=== PATIENT | male | born 1980 | race Caucasian/White ===

== ENCOUNTER 2021-05-18 16:45 | Outpatient (RCR) | payer OTHER, SELFPAY ==
[2021-02-18 09:05] VITALS: BP_SYST 160
--- NOTE | 2021-02-18 10:12 | PTOPEVAL ---
Thank you for referring Flo Farmer to [facility].? The patient is scheduled to be seen for therapy? 1-2 x/week for 5 weeks. Please review, sign, date and return this plan of care YULI. I agree with and certify that the following plan of care is medically necessary. 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 Onset 07/08 Additional Evaluation Detail He initially fractured his humerous with dislocation s/p ORIF 07/08, the shoulder replacement 06/07. He has been receiving therapy since surgery. 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 No Family strengthening. He reports limitations with reaching in all directions, sleeping on left side and lifting objects. He does basic yard work and walking for exercise. No regular fitness program. He is looking for a referral for an orthopedic MD at [facility]. Previous Treatments Previous Treatments For This Problem since 06/07 Pain Assessment Left Shoulder(s) Reported Pain Level 2 Pain Description Aching Pain Frequency Chronic,Continuous Lowest Pain Intensity 2 Greatest Pain Intensity 2 Upper Extremity Range of Motion Scapular/ Shoulder Range of Motion Right Shoulder Flexion - Active 154 Shoulder Extension - Active 38 Shoulder Abduction - Active 148 Shoulder Medial Rotation - Active T12:Reach Behind the Back Shoulder Lateral Rotation - Active C5:Reach Behind the Head Left Scapular: Retraction Hypomobile Scapular: Protraction Hypomobile Scapular Downward Rotation Hypomobile Scapular Upward Rotation Hypomobile Shoulder Flexion - Active 105 Shoulder Flexion - Passive 150 Shoulder Extension - Active 28 Shoulder Abduction - Active 78 Shoulder Abduction - Passive 160 Shoulder Medial Rotation - Active 35 Shoulder Medial Rotation - Passive 50 Shoulder Medial Rotation - Active iliac crestReach Behind the Back Shoulder Lateral Rotation - Active 4
--- NOTE | 2021-03-03 11:51 | PCPTNOTE ---
Patient called & cancelled scheduled appointment this date due to having to work.
--- NOTE | 2021-03-08 17:00 | PCPTNOTE ---
Patient called & cancelled scheduled appointment this date due to being out of town.
--- NOTE | 2021-03-10 16:59 | PCPTNOTE ---
Patient did not show up for scheduled appointment this date; called patient and left voicemail.
[2021-04-01 07:28] VITALS: BP_SYST 165
--- NOTE | 2021-04-05 07:25 | PCPTNOTE ---
Patient did not show up for scheduled appointment this date. Called and left message reminding him of his next visit.
--- NOTE | 2021-04-08 07:13 | PCPTNOTE ---
Patient did not show up for scheduled appointment this date. Called and left message on voicemail. Reminded him of his next visit and the cancellation policy. If he does not attend his next visit will DC him from therapy.
--- NOTE | 2021-04-13 16:27 | PCPTNOTE ---
Patient called & cancelled scheduled appointment this date due to not feeling well.
--- NOTE | 2021-04-29 15:56 | PCPTNOTE ---
Patient called & cancelled scheduled appointment this date leaving a voicemail with no reason.
[2021-05-05 07:31] VITALS: BP_SYST 170
--- NOTE | 2021-05-05 09:31 | PTOPEVAL ---
Thank you for referring Flo Farmer to [facility].? The patient is scheduled to be seen for therapy? 2 x/week for 4 weeks. Please review, sign, date and return this plan of care YULI. I agree with and certify that the following plan of care is medically necessary. Referring Physician Date Attending Provider: Brittnee Howard MD Diagnosis left shoulder pain. Onset 07/08 Additional Evaluation Detail He initially fractured his humerus with dislocation s/p ORIF 07/08, the shoulder replacement 06/07. Subjective Information He is performing HEP for Query Text:As Reported By Patient/ strengthening and UE Family stretching daily. He has a f/u with MD for results of US of left shoulder. REports the shoulder pain and range has improved with therapy. He is able to sleep better on the shoulder. Reports his main issue is reaching high for objects. Pain Assessment Left Shoulder(s) Reported Pain Level 1 Lowest Pain Intensity 20 Greatest Pain Intensity 2 Upper Extremity Range of Motion Scapular/ Shoulder Range of Motion Left Shoulder Flexion - Active 145 Shoulder Flexion - Passive 150 Shoulder Extension - Active 40 Shoulder Abduction - Active 120 Shoulder Abduction - Passive 170 Shoulder Medial Rotation - Active 62 Shoulder Medial Rotation - Passive 65 Shoulder Medial Rotation - Active L2:Reach Behind the Back Shoulder Lateral Rotation - Active 55 Shoulder Lateral Rotation - Passive 55 Shoulder Lateral Rotation - Active T2:Reach Behind the Head Scapular/Shoulder Range of Motion Muscle Weakness Limitations Scapular/Shoulder Range of Motion able to achieve 155 in Comments sidelying for left shoulder abduction Upper Extremity Muscle Strength Testing General Upper Extremity Strength Gross Upper Extremity Strength Comments dynamometer 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
--- NOTE | 2021-05-19 13:25 | PCPTNOTE ---
This treatment is being continued on visit number 14 to [id number]. Please see documentation on both accounts to view progress. Completed interventions, outcomes, and problems have been marked as Inactive to facilitate the copying of the Care plan routine for recurring accounts.
== END 2021-05-19 13:15 | disposition home or self-care (01) ==
LOC: ANHPT 16:45
PROVIDERS: PCP Family Medicine; Visit Provider Family Medicine
DX: M25.512 Pain in left shoulder (principal)
CPT/HCPCS: 97014; 97110; 97140; 97161; G0283

== ENCOUNTER 2021-05-27 07:30 | Outpatient (RCR) | payer OTHER, SELFPAY ==
[2021-05-19 13:15] VITALS: BP_SYST 170
--- NOTE | 2021-05-19 13:26 | PCPTNOTE ---
The treatment documented on this account is a continuation of the treatment documented on visit number 14 from [id number]. Please see documentation on both accounts to view progress. The Plan of Care has been transitioned and updated within the new V#. I have addressed and agree with the discipline specific Problems, Interventions, and Goals for the current certification period. Completed interventions, outcomes, and problems have been marked as Inactive to facilitate the copying of the Care plan routine for recurring accounts.
--- NOTE | 2021-05-25 14:44 | PCPTNOTE ---
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
--- NOTE | 2021-05-31 07:23 | PCPTNOTE ---
Patient called & cancelled scheduled appointment this date due to work.
--- NOTE | 2021-06-02 07:54 | PCPTNOTE ---
Patient did not show up for scheduled appointment this date. Sent pt an email regarding rescheduling his re-eval for next week.
--- NOTE | 2021-06-22 11:44 | PCPTNOTE ---
Admitting Provider: Attending Provider: Brittnee Howard MD Patient:Flo Farmer Date of :1980 Physical Therapy Discharge Note Patient has not returned for any further treatments since 05/27/2021, therefore he will be discharged at this time. Patient?s initial visit was on 05/19/2021 17:00 and he had a total of 16 visits with 9 no show/canceled visits. The goals have been partially met. Thank you for referring this patient to [facility]. Please review, sign, date and return this discharge summary YULI. I have been updated about the patient's current status and I agree with discharge from the above service at this time. Referring Physician Date
== END 2021-06-23 08:57 | disposition home or self-care (01) ==
LOC: ANHPT 07:30
PROVIDERS: PCP Family Medicine; Visit Provider Family Medicine
DX: M25.512 Pain in left shoulder (principal)
CPT/HCPCS: 97110; 97140

== ENCOUNTER 2022-01-12 07:15 | Outpatient (CLI) | payer OTHER, SELFPAY ==
[2022-01-12 08:04] LABS: Alanine Aminotransferase 47 U/L (6-50); Albumin Level 5.1 g/dL (3.5-5.1); Alkaline Phosphatase 64 U/L (38-126); Anion Gap 13 mmol/L (8-16); Aspartate Amino Transferase 28 U/L (17-59); Bilirubin,Total 0.4 mg/dL (0.2-1.3); Blood Urea Nitrogen 16 mg/dL (9-20); Calcium 9.8 mg/dL (8.4-10.2); Carbon Dioxide 28 mmol/L (22-30); Chloride 97 mmol/L (98-107); Cholesterol 240 mg/dL (0-200); Estimated Glomerular Filt Rate > 60; Glucose 117 mg/dL (65-110); HDL Direct 45 mg/dL; Potassium 4.4 mmol/L (3.4-5.0); Sodium 138 mmol/L (137-145); Triglycerides 280 mg/dL (<150)
[2022-01-12 08:05] LABS: Basophils Absolute Auto 0.1 K/mm3 (0.0-0.1); Basophils Percent Auto 1.3 % (0.2-1.2); Eosinophils Absolute Auto 0.3 K/mm3 (0-0.3); Eosinophils Percent Auto 3.6 % (0-4.4); Hematocrit 40.9 % (42.0-52.0); Immature Granulocyte Absolute 0.03 K/mm3 (0.00-0.031); Immature Granulocyte Percent A 0.4 % (0-0.5); Lymphocytes Absolute Auto 2.53 K/mm3 (0.9-3.2); Lymphocytes Percent Auto 30.1 % (18.3-44.2); Mean Corpuscular HGB Conc 34.2 g/dl (32-36); Mean Corpuscular Hemoglobin 29.7 pg (26-34); Mean Corpuscular Volume 86.8 fl (80-100); Mean Platelet Volume 8.9 fl (7.4-10.4); Monocytes Absolute Auto 1.1 K/mm3 (0.1-0.6); Monocytes Percent Auto 13.3 % (2.6-8.5); Neutrophils Absolute Auto 4.3 K/mm3 (1.3-6.7); Neutrophils Percent Auto 51.3 % (45.5-73.1); Platelet Count Result 411 k/mm3 (150-375); Red Blood Count 4.71 M/mm3 (4.6-6.20); Red Cell Distribution Width 13.3 % (11.5-14.5); White Blood Count 8.4 K/mm3 (4.5-10.0)
[2022-01-12 08:16] LABS: LDL Cholesterol Direct 119 mg/dL
[2022-01-12 08:34] LABS: Prostate Specific Antigen 0.3 ng/mL (< OR = 4.0)
[2022-01-12 09:07] LABS: Hemoglobin A1C 5.5 % (<5.7)
[2022-01-12 09:14] LABS: Vitamin D 25 Hydroxy 66.8 ng/mL
== END 2022-01-12 07:16 | disposition home or self-care (01) ==
LOC: ANHLAB 07:17
PROVIDERS: PCP Family Medicine; Visit Provider Family Medicine
DX: Z00.00 Encounter for general adult medical examination without abnormal findings (principal); Z12.5 Encounter for screening for malignant neoplasm of prostate; Z80.42 Family history of malignant neoplasm of prostate; I10 Essential (primary) hypertension; R51.9 Headache, unspecified; Z13.220 Encounter for screening for lipoid disorders; E55.9 Vitamin D deficiency, unspecified
CPT/HCPCS: 36415; 80053; 80061; 82306; 83036; 84153; 84443; 85025; G0103

== ENCOUNTER 2023-01-22 19:31 | Emergency (ER) | payer BC, SELFPAY ==
[2023-01-22] VITALS (14 sets, daily range): BP systolic 106–141; BP diastolic 77–86; PULSE 97–143; RESP 15–25; TEMP 37.1; O2SAT 93–94
--- NOTE | 2023-01-22 19:38 | PC.NURSE ---
Patient denies hitting his head or LOC when he fell
--- NOTE | 2023-01-22 19:40 | ECG_ITS ---
Measurements Intervals [place] Rate: 136 P: 50 ND: 148 QRS: 12 QRSD: 85 T: -8 QT: 331 QTc: 498 Interpretive Statements SINUS TACHYCARDIA MODERATE T-WAVE ABNORMALITY, CONSIDER ANTERIOR ISCHEMIA [-0.1+ mV T WAVE IN V3/V4] ABNORMAL ECG NO PREVIOUS ECG AVAILABLE FOR COMPARISON Electronically Signed On 01-23-2023 10:23:55 CDT by Abhilash Lehman M.D.
--- NOTE | 2023-01-22 19:42 | PC.NURSE ---
Upon doing an neurological assessment patient appears A&Ox4, he is able to recall all events today (other than how much he drank). Patient denies any SI or HI.
[2023-01-22 20:00] LABS: Basophils Percent Auto 0.7 % (0.2-1.2); Eosinophils Absolute Auto 0.2 K/mm3 (0-0.3); Hematocrit 38.9 % (42.0-52.0); Hemoglobin 12.5 g/dL (14.0-18.0); Immature Granulocyte Absolute 0.02 K/mm3 (0.00-0.031); Immature Granulocyte Percent A 0.4 % (0-0.5); Lymphocytes Absolute Auto 1.51 K/mm3 (0.9-3.2); Lymphocytes Percent Auto 26.4 % (18.3-44.2); Mean Corpuscular HGB Conc 32.1 g/dl (32-36); Mean Corpuscular Hemoglobin 27.1 pg (26-34); Mean Corpuscular Volume 84.4 fl (80-100); Mean Platelet Volume 8.5 fl (7.4-10.4); Monocytes Absolute Auto 0.5 K/mm3 (0.1-0.6); Monocytes Percent Auto 8.6 % (2.6-8.5); Neutrophils Absolute Auto 3.4 K/mm3 (1.3-6.7); Neutrophils Percent Auto 59.9 % (45.5-73.1); Platelet Count Result 406 k/mm3 (150-375); Red Blood Count 4.61 M/mm3 (4.6-6.20); Red Cell Distribution Width 15.6 % (11.5-14.5); White Blood Count 5.7 K/mm3 (4.5-10.0)
[2023-01-22 20:11] LABS: Ethanol 257 mg/dL (<10)
[2023-01-22 20:15] LABS: Potassium 3.7 mmol/L (3.4-5.0)
[2023-01-22 20:17] LABS: Alanine Aminotransferase 55 U/L (6-50); Albumin Level 4.5 g/dL (3.5-5.1); Alkaline Phosphatase 69 U/L (38-126); Anion Gap 14 mmol/L (8-16); Aspartate Amino Transferase 51 U/L (17-59); Bilirubin,Total 0.2 mg/dL (0.2-1.3); Blood Urea Nitrogen 10 mg/dL (9-20); Calcium 8.6 mg/dL (8.4-10.2); Carbon Dioxide 22 mmol/L (22-30); Chloride 108 mmol/L (98-107); Estimated CRCL calculation 102 ml/min; Estimated Glomerular Filt Rate > 60; Glucose 148 mg/dL (65-110); Lipase 76 U/L (23-300); Sodium 144 mmol/L (137-145)
--- NOTE | 2023-01-22 21:10 | ED.FALL ---
HPI - Fall General Chief Complaint: Fall <Kip Hernandez MD - Last Filed: 01/30/23 19:21> Stated Complaint: GLF, +ETOH <Kip Hernandez MD - Last Filed: 01/30/23 19:21> Time Seen by Provider: 01/22/23 19:34 <Kip Hernandez MD - Last Filed: 01/30/23 19:21> History of Present Illness HPI Narrative: Patient is a 42-year-old male who presents ER after reports of a fall. Apparently patient was very intoxicated today and when his arrived home from a business trip she kicked him out of the house. She packed up his things and took him to a local hotel. Upon getting to the hotel and trying to go inside he sat himself down on the curb and could not actually get back up. Denies any trauma and there is no reports of trauma by the after EMS arrived to help get the patient up. Patient has no complaints at this time. He is quite intoxicated. He reports he took an Ambien around 10 AM. He reports he has been drinking vodka. <Kip Hernandez MD - Last Filed: 01/30/23 19:21> Related Data Allergies/Adverse Reactions: Allergies Allergy/AdvReac Type Severity Reaction Status Date / Time No Known Allergies Allergy Verified 01/11/22 08:24 <Kip Hernandez MD - Last Filed: 01/30/23 19:21> Review of Systems Review of Systems: ROS unobtainable: Yes other (Intoxication) <Kip Hernandez MD - Last Filed: 01/30/23 19:21> Constitutional: Constitutional: Denies chills and Denies fever(s) <Kip Hernandez MD - Last Filed: 01/30/23 19:21> Respiratory: Respiratory: Denies cough and Denies dyspnea <Kip Hernandez MD - Last Filed: 01/30/23 19:21> Gastrointestinal: Gastrointestinal: Denies abdominal pain, Denies nausea and Denies vomiting <Kip Hernandez MD - Last Filed: 01/30/23 19:21> Neurologic: Denies syncope, Denies headache(s) and Denies focal weakness <Kip Hernandez MD - Last Filed: 01/30/23 19:21> PMFSH Past Medical History Medical History: Medical History Essential (primary) hypertension Family history of prostate cancer in father Genital herpes in men Insomnia Narcolepsy <Kip Hernandez MD - Last Filed: 01/30/23 19:21> Surgical History Surgical History: Surgical History History of humerus fracture (~06/2019) 07/08 - ORIF History of left shoulder replacement (~05/2020) <Kip Hernandez MD - Last Filed: 01/30/23 19:21> Family History Family History: Family History Father Malignant neoplasm of prostate Mother Cerebrovascular accident <Kip Hernandez MD - Last Filed: 01/30/23 19:21> Social History Social History: Social History Smoking status: Never smoker Alcohol intake: never Substance use: never Substance use type: does not use Living arrangements: with family Occupation/Education: occupation Gender identity (if verbalized by the patient): Male Sexual Orientation (if Verbalized by the Patient): Straight or Heterosexual Agree to blood products: Yes <Kip Hernandez MD - Last Filed: 01/30/23 19:21> Exam Narrative: GENERAL: Intoxicated-appearing, well-nourished, and in no acute distress. HEAD: Normocephalic, atraumatic. EYES: PERRL and EOMI. ENT: Mucous membranes moist. CHEST: Clear to auscultation. No respiratory distress. HEART: Tachycardic and regular. Normal peripheral pulses. ABDOMEN: Soft, nontender, nondistended. EXTREMITIES: Normal range of motion. No edema. SKIN: Warm, dry, no rash. NEURO: Alert and oriented x3. PSYCH: Normal mood and affect. <Kip Hernandez MD - Last Filed: 01/30/23 19:21> Course Course Emergency Course: 58247: Patient resting comfortably. Ethanol level elevated but lab work on unremarkable otherwise. Patient will
[2023-01-22] MEDS: SODIUM CHLORIDE 0.9% IV 1,000 ML 999 ML IV CONT (21:51)
[2023-01-23 00:29] VITALS: BP 123/80; PULSE 91; RESP 17; O2SAT 95
[2023-01-23 01:34] VITALS: BP 119/84; PULSE 86; RESP 15; O2SAT 95
--- NOTE | 2023-01-23 02:31 | PC.NURSE ---
Patient's girlfriend called for an update. Patient gave permission to update girlfriend
[2023-01-23 03:34] VITALS: BP 147/87; PULSE 85; RESP 16; O2SAT 97
[2023-01-23 04:04] VITALS: BP 132/92; PULSE 85; RESP 15; O2SAT 98
[2023-01-23 05:10] VITALS: BP 143/98; PULSE 88; RESP 20; TEMP 36.6; O2SAT 98
--- NOTE | 2023-01-23 05:11 | PC.NURSE ---
Patient's girlfriend arrived and stated that she will be taking the patient home with her
== END 2023-01-23 05:12 | disposition home or self-care (01) ==
PROVIDERS: Emergency Provider Emergency Medicine; PCP Family Medicine
DX: F10.129 Alcohol abuse with intoxication, unspecified (principal); I10 Essential (primary) hypertension; Z96.612 Presence of left artificial shoulder joint; Y90.8 Blood alcohol level of 240 mg/100 ml or more; R00.0 Tachycardia, unspecified; R94.31 Abnormal electrocardiogram [ECG] [EKG]
CPT/HCPCS: 36415; 80053; 80307; 83690; 85025; 93005; 96360; 99283; J7030